=== PATIENT | male | born 1965 | race African-American/Black ===

== ENCOUNTER 2016-07-14 06:14 | Day surgery (SDC) | payer BC ==
[2016-07-13 10:00] LABS: HEMATOCRIT 46.2 % (42.0-54.0); HEMOGLOBIN 15.1 g/dL (13.5-17.5); MCH 29.8 pg (26.0-34.0); MCHC 32.7 g/dL (31.0-37.0); MCV 91.3 fL (80.0-100.0); MEAN PLATELET VOLUME 11.5 fL (7.4-10.4); RBC 5.06 10x6/uL (4.20-6.10); RDW 13.1 % (11.5-14.5); WBC 5.9 10x3/uL (4.8-10.8)
[~2016-07-14] VITALS: Ht 165.1 cm; Wt 89.8 kg
[~2016-07-14 06:14] MED LIST: CLARITIN 10 MG10 MG PO; CRESTOR40 MG PO; HYDROCODON-ACE1 EAC7 PO; NORVASC10 MG PO
[2016-07-14 08:25] VITALS: BP 136/84; Ht 165.1 cm; Wt 89.8 kg
[2016-07-14] MEDS ORDERED: PERCOCET 10/3251 TA1 PO (12:52)
--- NOTE | 2016-07-14 16:18 | NUR ---
1415 iv dc with cather tip intact =
--- NOTE | 2016-07-15 11:39 | OP ---
PATIENT NAME: FAM BLACKWELL MEDICAL RECORD: [id number] :63 LOCATION:[facility] ADMISSION DATE: SURGEON: JAYSON BONE MD DATE OF OPERATION: 07/14/2016 PREOPERATIVE DIAGNOSES: Rotator cuff tear of the right shoulder, impingement syndrome of the right shoulder and acromioclavicular arthritis of the right shoulder. POSTOPERATIVE DIAGNOSES: Rotator cuff tear of the right shoulder, impingement syndrome of the right shoulder, acromioclavicular arthritis of the right shoulder and severe biceps tendinitis. PROCEDURES: 1. Arthroscopic rotator cuff repair. 2. Arthroscopic biceps tenotomy. 3. Arthroscopic distal clavicle excision. 4. Arthroscopic subacromial decompression with acromioplasty and bursectomy. SURGEON: Jayson Bone MD. ANESTHESIA: General. INTRAOPERATIVE COMPLICATIONS: None. SUMMARY OF PATHOLOGIC FINDINGS: There is a relatively wide tear requiring 2-anchor fixation. OPERATIVE SUMMARY IN DETAIL: After obtaining the appropriate orthopedic surgery consent as well as anesthetic consultation, evaluation and clearance, the patient was brought to the operating room and placed on the operating table in supine position. After general laryngeal mask was administered, the patient was placed in left lateral decubitus position. All pressure points were well padded to include down leg peroneal nerve pad as well as axillary roll. The patient was held firmly to the operating room table using the vacuum pack suction system. Right upper extremity and shoulder were then prepped and draped in a routine sterile fashion. The arm was held in the Arthrex traction boom at 30 degrees of forward flexion, 30 degrees of abduction with 10 pounds of traction laterally. Arthroscopy was established in the glenohumeral joint from a posterior portal. Anterior portal was established in the anterior safe interval. Diagnostic arthroscopy revealed the above findings. A transarthroscopic rotator cuff tear portal was created. The biceps tendon was nearly completely torn, it was released. The undersurface of the rotator cuff tear as well as supraspinatus tendinous footprint was decorticated using the arthroscopic resector. Attention was turned to the subacromial space. In the subacromial space, through the same accessory lateral portal, surface tissue ablation system was used to denude the undersurface of the type 3 acromion and release the coracoacromial ligament, which was very excoriated. A 5-0 barrel noe was then used to perform acromioplasty at the level of acromioclavicular joint. At this point, the distal AC joint was revised for 1 cm using a separate arthroscopic portal. Having completed this, attention was returned to the rotator cuff. Two #2 Ethibonds were placed in inverted mattress style fashion. Each were anchored laterally with a 5.5 SwiveLock from [employer] resulted in excellent anatomic rotator cuff repair. Having completed this, arthroscopy portals were closed in routine interrupted fashion using 4-0 Prolene. Sterile OPERATIVE REPORT [id number] FAM BLACKWELL dressings were applied. The patient was awakened and taken to the recovery room in stable condition. All final needle and sponge counts were correct. TRANSINT:[id number] Voice Confirmation ID: [id number] DOCUMENT ID: [id number] SMITHA DUBOSE, JAYSON DUKE at 1139 CC: [id number] DICTATION DATE: 07/14/16 1335 ROOF DESIGNER: 07/15/16 0013 [facility] 07/14/16 [id number] [place] [address]
== END 2016-07-14 14:30 | disposition home or self-care (01) ==
LOC: D.OPS 06:14 → D.PAN 14:00 → D.OPS 14:00
PROVIDERS: Anesthesiology
DX: M75.111 Incomplete rotator cuff tear or rupture of right shoulder, not specified as traumatic (principal); M75.41 Impingement syndrome of right shoulder; M13.811 Other specified arthritis, right shoulder; M75.21 Bicipital tendinitis, right shoulder; Z01.812 Encounter for preprocedural laboratory examination

== ENCOUNTER 2017-07-03 08:55 | Day surgery (SDC) | payer BC ==
[2017-06-30 11:55] LABS: HEMATOCRIT 46.5 % (42.0-54.0); HEMOGLOBIN 15.8 g/dL (13.5-17.5); MCH 30.2 pg (26.0-34.0); MCV 88.7 fL (80.0-100.0); MEAN PLATELET VOLUME 11.1 fL (7.4-10.4); RBC 5.24 10x6/uL (4.20-6.10); RDW 13.3 % (11.5-14.5); WBC 5.2 10x3/uL (4.8-10.8)
[~2017-07-03] VITALS: Ht 165.1 cm; Wt 90.7 kg
--- NOTE | ~2017-07-03 | OP ---
PATIENT NAME: FAM BLACKWELL MEDICAL RECORD: [id number] :63 LOCATION:[facility] ADMISSION DATE: SURGEON: JAYSON BONE MD DATE OF OPERATION: 07/03/2017 PREOPERATIVE DIAGNOSIS: Recurrent rotator cuff tear of the right shoulder. POSTOPERATIVE DIAGNOSES: 1. Recurrent rotator cuff tear of the right shoulder. 2. Severe biceps tendinitis. PROCEDURES: 1. Arthroscopic rotator cuff repair. 2. Arthroscopic biceps tenodesis. SURGEON: Jayson Bone MD ANESTHESIA: General. INTRAOPERATIVE COMPLICATIONS: None. SUMMARY OF PATHOLOGIC FINDINGS: The patient has severe biceps tendinitis and recurrent rotator cuff tear, right at the bicipital groove. OPERATIVE SUMMARY IN DETAIL: After obtaining the appropriate preoperative orthopedic surgery consent as well as anesthetic consultation, evaluation, and clearance, the patient was brought to the operating room and placed on the operating table in the supine position. After adequate general laryngeal mask was administered, the patient was placed in a left lateral decubitus position. He was held firmly to the operating table using the vacuum pack suction system. Right upper extremity and shoulder were then prepped and draped in a routine sterile fashion. The arm was held in the Arthrex traction boom at 30 degrees of forward flexion, 30 degrees of abduction, and 10 pounds of traction laterally. Arthroscopy was established in the glenohumeral joint from a posterior portal. Anterior portal was established in the anterior safe interval. Diagnostic arthroscopy did reveal the above findings. Transarthroscopic rotator cuff portal was used to grasp the biceps tendon and FiberTape was passed to get a firm hold. The biceps was tenotomized and then at the appropriate length, the biceps was tenodesed in the proximal groove of the bicipital groove using a #8 biceps tenodesis screw from Arthrex. Having completed this, the footprint of the supraspinatus tendon that was torn was cleaned off. Double-row SpeedBridge was then deployed with the first two just off the articular surface. These tails were then passed through the rotator cuff, cut and then anchored distally with the lateral row of the SpeedBridge kit. The most anterior strings of the lateral row utilized to reach and hook dog ear and this was then anchored with a 4.75 SwiveLock from [employer]. This resulted in excellent rotator cuff repair and a good biceps tenodesis. Wound was then copiously irrigated and closed with 2-0 Vicryl followed by 4-0 Prolene in a running fashion. Sterile dressings were applied. The patient was awakened and taken to the recovery room in stable condition. All final needle and sponge counts were correct. TRANSINT:[id number] Voice Confirmation ID: [id number] DOCUMENT ID: [id number] 07/28/2017 Edited per office, [email or web address]. OPERATIVE REPORT [id number] FAM BLACKWELL MD, JAYSON DUKE at 1349 CC: [id number] DICTATION DATE: 07/03/17 1345 ARRT TECHNOLOGIST: 07/03/17 1421 [facility] 07/03/17 [id number] [place] [address]
[~2017-07-03 08:55] MED LIST changes: +PERCOCET 10/3251 TA1 PO; +ZOCOR10 MG PO
[2017-07-03] MEDS ORDERED: ZOCOR20 MG PO (09:31)
[2017-07-03 09:33] VITALS: BP 138/85; Ht 165.1 cm; Wt 90.7 kg
[2017-07-03] MEDS ORDERED: HYDROCODONE-APA1 TAB PO (13:37)
== END 2017-07-03 15:45 | disposition home or self-care (01) ==
LOC: D.OPS 08:55 → D.PAN 08:55 → D.OPS 11:00 → D.PAN 11:00 → D.OPS 12:55 → D.PAN 12:55 → D.OPS 15:45
PROVIDERS: Anesthesiology
DX: M75.102 Unspecified rotator cuff tear or rupture of left shoulder, not specified as traumatic (principal); M75.22 Bicipital tendinitis, left shoulder; I10 Essential (primary) hypertension; K21.9 Gastro-esophageal reflux disease without esophagitis; Z01.812 Encounter for preprocedural laboratory examination

== ENCOUNTER → 2018-01-01 18:32 | Outpatient (CLI) | payer BC ==
[2017-07-03 09:33] VITALS: BMI 33.3
[~2018-01-01 18:32] MED LIST changes: +HYDROCODONE-APA1 TAB PO; +ZOCOR20 MG PO
== END | disposition home or self-care (01) ==
LOC: D.LABREF 18:32
DX: R31.9 Hematuria, unspecified (principal)

== ENCOUNTER → 2018-01-23 15:10 | Outpatient (CLI) | payer BC ==
[2017-07-03 09:33] VITALS: BMI 33.3
== END | disposition home or self-care (01) ==
LOC: D.US 15:10
DX: R31.21 Asymptomatic microscopic hematuria (principal)

== ENCOUNTER → 2018-03-23 17:19 | Outpatient (CLI) | payer BC ==
[2017-07-03 09:33] VITALS: BMI 33.3
== END | disposition home or self-care (01) ==
LOC: D.LABREF 17:19
DX: R31.9 Hematuria, unspecified (principal)

== ENCOUNTER 2018-07-12 05:35 | Day surgery (SDC) | payer BC ==
[~2018-07-12] VITALS: Ht 165.1 cm; Wt 91.2 kg
[2018-07-12 05:59] LABS: HEMATOCRIT 48.3 % (42.0-54.0); HEMOGLOBIN 16.2 g/dL (13.5-17.5); MCH 29.7 pg (26.0-34.0); MCHC 33.5 g/dL (31.0-37.0); MCV 88.5 fL (80.0-100.0); MEAN PLATELET VOLUME 11.2 fL (7.4-10.4); RBC 5.46 10x6/uL (4.20-6.10); RDW 13.4 % (11.5-14.5)
[2018-07-12] MEDS ORDERED: FLUTICASONE PRO16 GM NASAL (06:30)
[2018-07-12] MEDS ORDERED: SINGULAIR10 MG PO (06:30)
[2018-07-12] MEDS ORDERED: ALBUTEROL SULF8.5 GM INH (06:31)
[2018-07-12 06:40] VITALS: BP 118/84; Ht 165.1 cm; Wt 91.2 kg
--- NOTE | 2018-07-12 08:30 | NUR ---
EATING FL TRAY. FAMILY AT BEDSIDE. NO URGE TO VOID.
--- NOTE | 2018-07-12 08:36 | OP ---
PATIENT NAME: FAM BLACKWELL MEDICAL RECORD: [id number] :63 LOCATION:[facility] ADMISSION DATE: SURGEON: JOHN LORENZO MD DATE OF OPERATION: 07/12/2018 SURGEON: John Lorenzo MD ANESTHESIA: TIVA by Adair Zamorano CRNA DIAGNOSIS: Microscopic hematuria. PROCEDURE: Cystoscopy. FINDINGS: Vascular prostatic urethra, nonobstructive prostate. Bilateral single ureteral orifices with no bladder tumors seen. BLOOD LOSS: None. CLINICAL HISTORY: This is a 53-year-old male, who is a nonsmoker. He was being worked up for microscopic hematuria. He had an ultrasound of the kidneys, which showed bilateral renal cysts, but no hydronephrosis and no renal masses. His postvoid residual on ultrasound was 0 mL. Urine cytology was nondiagnostic. He only requires cystoscopy to complete the hematuria workup. He is not allergic to any medications. He was given Ancef vegetable scullion to the OR. DESCRIPTION OF PROCEDURE: The patient was given IV sedation. He was then placed into dorsal lithotomy position and prepped and draped. A 17-Yi cystoscope with 30-degree lens was used for visualization. Findings are as outlined above. The bladder was then emptied through the scope sheath and the scope was removed. TRANSINT:[id number] Voice Confirmation ID: [id number] DOCUMENT ID: [id number] JOHN LORENZO MD at 0836 CC: [id number] DICTATION DATE: 07/12/18 0804 DRAG CAR RACER: 07/12/18 0825 [id number] [place] [address]
--- NOTE | 2018-07-12 09:00 | NUR ---
TOLERATED DIET. AMBULATED TO BATHROOM AND VOIDED WITHOUT DIFFICULTY. FAMILY AT BEDSIDE. IV DC'D WITH CATHETER INTACT.
--- NOTE | 2018-07-12 09:12 | NUR ---
WRITTEN AND VERBAL DC INST. GIVEN TO PT. VERBALIZED UNDERSTANDING.
--- NOTE | 2018-07-12 09:20 | NUR ---
DC'D HOME WITH FAMILY VIA PRIVATE VEHICLE. TAKEN TO VEHICLE VIA WC. STABLE AT TIME OF DC.
== END 2018-07-12 09:20 | disposition home or self-care (01) ==
LOC: D.OPS 05:35 → D.PAN 09:15 → D.OPS 09:20
PROVIDERS: Anesthesiology; ATTEND Urology
DX: R31.29 Other microscopic hematuria (principal); Z01.812 Encounter for preprocedural laboratory examination